=== PATIENT | male | born 1945 | race Caucasian/White ===

== ENCOUNTER → 2016-09-22 | Outpatient (CLI) | payer OTHER ==
[~2016-09-22] MED LIST: ASPI81TA57 PO; ATOR-22 PO; DOXA1TAB86 PO; FLM4 PO; MISC1CAP60 PO; MULT-845 PO; SERT50TA PO; TPRSR/50 PO
--- NOTE | 2016-09-26 10:46 | Pulmonary Function Report ---
Pulmonary Function Report September 22, 2016 Pulmonary Function Report: Clinical data: The patient is a 71-year-old male with a height of 70 inches and a weight of 210 pounds referred for evaluation of an abnormal CT scan of the lung. Spirometry pre and post bronchodilator, lung volumes, and diffusion capacity were performed. Findings: Pre bronchodilator spirometry demonstrates very mild small airway obstructive disease. FVC is 111 percent of predicted, FEV1 is 105 percent of predicted, and FEF 25-75 is 82 percent of predicted. There was improvement after inhaled bronchodilator with a 3 percent improvement in FVC, a 7 percent improvement in FEV1, and a 27 percent improvement in FEF 25-75. Lung volumes demonstrated a slight reduction in expiratory reserve volume. There was no significant air trapping seen. DLCO was normal at 103 percent of predicted. Impression: Very mild obstructive small airways disease with improvement after inhaled bronchodilator. Copies To 1: Radha Main M.D.
== END | disposition home or self-care (01) ==
LOC: C.RC 11:01
PROVIDERS: ATTEND Internal Medicine
DX: R91.8 Other nonspecific abnormal finding of lung field (principal); F17.220 Nicotine dependence, chewing tobacco, uncomplicated